=== PATIENT | male | born 1980 | race Caucasian/White ===

== ENCOUNTER 2020-12-25 11:39 | Emergency (ER) | payer OTHER, MEDICAID, SELFPAY ==
[2020-12-25] VITALS (8 sets, daily range): BP systolic 143–178; BP diastolic 70–96; PULSE 62–117; RESP 16; O2SAT 97–100; BMI 29.8
[2020-12-25] MEDS: ONDANSETRON 4 MG/2 ML INJ IV (12:07)
[2020-12-25 12:20] LABS: INR 1.1 (0.9-1.3); Prothrombin Time 12.6 SECONDS (10.1-12.7)
[2020-12-25 12:21] LABS: Add Manual Diff / Slide Review NO; Basophils Absolute Auto 0 /uL (0-100); Basophils Percent Auto 0.2 % (0-2); Eosinophils Absolute Auto 0 /uL (0-450); Hematocrit 46.4 % (41-53); Hemoglobin 15.1 g/dL (13.5-17.5); Lymphocytes Absolute Auto 1400 /uL (1100-4500); Lymphocytes Percent Auto 6.4 % (25-40); Mean Corpuscular HGB Conc 32.4 % (30-36); Mean Corpuscular Hemoglobin 27.7 PG (26-34); Mean Corpuscular Volume 85.3 fL (80-100); Monocytes Absolute Auto 1200 /uL (0-900); Monocytes Percent Auto 5.6 % (3-14); Neutrophils Absolute Auto 18400 /uL (1500-7000); Neutrophils Percent Auto 87.8 % (50-75); Platelet Count 315 X10^3/uL (150-400); Red Blood Cell Count 5.44 X10^6/uL (4.5-5.9); Red Cell Distribution Width 14.4 % (11.6-14.8)
[2020-12-25 12:23] LABS: PTT Partial Thromboplastin Tim 29 SECONDS (26.4-36.2)
[2020-12-25 12:24] LABS: Alanine Aminotransferase 37 IU/L (<50); Albumin Globulin Ratio 1.3 (1.0-2.8); Alkaline Phosphatase 112 U/L (38-126); Aspartate Aminotransferase 47 IU/L (17-59); BUN Creatinine Ratio 20.9 (6-22); Bilirubin Total 0.7 mg/dL (0.2-1.3); Blood Urea Nitrogen 19 mg/dL (9-20); Calcium 10.1 mg/dL (8.4-10.2); Carbon Dioxide 25 mmol/L (22-32); Chloride 102 mmol/L (98-107); Estimated Glomerular Filt Rate > 60.0 mL/min (>60); Glucose 153 mg/dL (70-100); HEMOLYSIS < 15 (0-50); Lipase 22 U/L (23-300); Potassium 3.5 mmol/L (3.4-5.1); Sodium 139 mmol/L (137-145)
--- NOTE | 2020-12-25 12:31 | ED_ITS ---
HPI - Abdominal Pain General Chief Complaint: Abdominal Pain Stated Complaint: throwing up since yesterday,acid burning throat Time Seen by Provider: 12/25/20 12:16 Source: patient Mode of arrival: Ambulatory Limitations: no limitations History of Present Illness HPI narrative: Patient is a 40-year-old male with history of GERD presenting with vomiting diarrhea and burning in his esophagus. He says that at around 1:00 p.m. he started vomiting and having watery episodes of diarrhea. He has thrown up multiple times some has been blood tinged. He has been trying to keep water and Gatorade down and is sometimes successful and sometimes not. He is having some epigastric discomfort and complains of burning in his throat. He was previously on Prilosec but says he ran out and did not get his prescription refilled and did not take any [id number]. He denies any fever or chills no on else is sick at home. Patient says he was vomiting bright red blood all last night a few times but has not vomited bright red blood today. MD complaint: abdominal pain Pain Consistency: constant Location: epigastric Related Data Previous Rx's Medication Instructions Recorded cyclobenzaprine 10 mg PO TIDP PRN #14 tab 09/11/17 hydrocodone-acetaminophen 0 tab PO Q6HP PRN #15 tab 09/11/17 ketorolac 10 mg PO Q6HP PRN #15 tab 09/11/17 omeprazole 40 mg PO DAILY #30 cap 12/25/20 ondansetron 8 mg PO Q8H #14 tab 12/25/20 Allergies Allergy/AdvReac Type Severity Reaction Status Date / Time No Known Drug Allergies Allergy Verified 12/25/20 12:12 Review of Systems Review of Systems Narrative: GENERAL: Denies chills, fatigue, malaise, fever, sweats, travel HEENT: Denies sinus pain, ear pain, sore throat, difficulty swallowing, neck pain RESPIRATORY: Denies dyspnea, cough, wheezing, hemoptysis, sputum. CARDIOVASCULAR: Denies chest pain, palpitations, orthopnea, edema GASTROINTESTINAL: See HPI : Denies dysuria, frequency, incontinence, hematuria, urinary retention, flank pain. MUSCULOSKELETAL: Denies weakness, joint pain, or bony pain SKIN: No rash, no erythema, no pruritus NEUROLOGIC: Denies weakness, dizziness, headache, numbness, change in speech, confusion PSYCHIATRIC: No concerning psychosocial issues. 12 point review of systems is negative except for those stated above and HPI Patient History Medical History GERD (gastroesophageal reflux disease) Social History Smoking Status: Never smoker Smoking Status: Never smoker alcohol intake frequency: 0-2 drinks per day Substance Use Type: does not use Exam Initial Vital Signs Initial Vital Signs: Vital Signs Pulse Rate 117 H 12/25/20 11:40 Respiratory Rate 16 12/25/20 11:40 Blood Pressure 178/90 H 12/25/20 11:40 Pulse Oximetry 100 12/25/20 11:40 GENERAL: Well-appearing, well-nourished and in no acute distress. HEENT: Head atraumatic,EOMI, pupils reactive, face symmetric, dry mucous membranes CARDIOVASCULAR: Regular rate and rhythm without murmurs, rubs or gallops. RESPIRATORY: Breath sounds equal bilaterally, no wheezes rales or rhonchi. ABDOMEN: Soft, mild epigastric pain. Normoactive bowel sounds all 4 quadrants. No guarding or rebound. EXTREMITIES: Normal range of motion, no clubbing or edema. Neurovascularly intact NEUROLOGICAL: Alert and oriented x4.Normal gait and speech. Cranial nerves II through XII grossly intact. SKIN: Warm, dry, no laceration, no petechiae, no rashes or lesions. Course Orders Ordered: ED Orders 12/25/20 11:55 Complete Blood Count AUTO DIFF Stat Comprehensive Metabolic Panel Stat Lipase Stat Partial Thromboplastin Time Stat Prothrombin Time INR Stat 12/25/20 12:51 EKG-12 Lead Stat Discontinued Medications Al Hydrox/Mg Hydrox/Simethicone 20 ml/ Lidocaine HCl 15 ml 0 ml PO NOW ONE Stop: 12/25/20 12:39 Last Admin: 12/25/20 12:54 Dose: 35 ml Documented by: BTONEAyad Sodium Chloride (Normal Saline 0.9%) 1,000 mls @ 1,000 mls/hr IV BOLUS ONE Stop: 12/25/20 13:37 Last Infusion: 12/25/20 14:02 Dose: 0 mls/hr Documented by: Admin: 12/25/20 12:53 Dose: 1,000 mls/hr Documented by: BTONER Ondansetron HCl (Ondansetron 4 Mg/2 Ml Inj) 4 mg IV NOW ONE Stop: 12/25/20 12:02 Last Admin: 12/25/20 12:07 Dose: 4 mg Documented by: ROSAURA Vital Signs Vital signs: Vital Signs - 8 hr 12/25/20 11:40 12/25/20 11:44 12/25/20 12:00 Pulse Rate 117 H 77 74 Respiratory Rate 16 Blood Pressure 178/90 H 178/90 H Pulse Oximetry 100 99 99 12/25/20 12:30 12/25/20 13:00 12/25/20 13:30 Pulse Rate 62 87 99 H Respiratory Rate Blood Pressure 154/88 H 160/96 H 143/70 H Pulse Oximetry 100 97 97 12/25/20 13:50 12/25/20 14:03 Pulse Rate 96 H Respiratory Rate 16 Blood Pressure 143/70 H Pulse Oximetry 97 MDM - Abdominal Pain Lab Data Attestation: I reviewed the patient's lab results. Result diagrams: 12/25/20 11:55 12/25/20 11:55 Labs: Lab Results 12/25/20 12/25/20 12/25/20 Range/Units 11:55 11:55 11:55 WBC 21.0 H (4.5-11.0) X10^3/uL RBC 5.44 (4.5-5.9) X10^6/uL Hgb 15.1 (13.5-17.5) g/dL Hct 46.4 (41-53) % MCV 85.3 (80-100) fL MCH 27.7 (26-34) PG MCHC 32.4 (30-36) % RDW 14.4 (11.6-14.8) % Plt Count 315 (150-400) X10^3/uL Neut % (Auto) 87.8 H (50-75) % Lymph % (Auto) 6.4 L (25-40) % Hettinger % (Auto) 5.6 (3-14) % Eos % (Auto) 0.0 L (2-4) % Baso % (Auto) 0.2 (0-2) % Neut # (Auto) 14878 H (9942-4498) /uL Lymph # (Auto) 1400 (7049-3010) /uL [place]tinger # (Auto) 1200 H (0-900) /uL Eos # (Auto) 0 (0-450) /uL Baso # (Auto) 0 (0-100) /uL PT 12.6 (10.1-12.7) SECONDS INR 1.1 (0.9-1.3) APTT 29 (26.4-36.2) SECONDS Sodium 139 (137-145) mmol/L Potassium 3.5 (3.4-5.1) mmol/L Chloride 102 (98-107) mmol/L Carbon Dioxide 25 (22-32) mmol/L BUN 19 (9-20) mg/dL Creatinine 0.91 (0.66-1.25) mg/dL Estimated GFR > 60.0 (>60) mL/min BUN/Creatinine Ratio 20.9 (6-22) Glucose 153 H (70-100) mg/dL Calcium 10.1 (8.4-10.2) mg/dL Total Bilirubin 0.7 (0.2-1.3) mg/dL AST 47 (17-59) IU/L ALT 37 (<50) IU/L Alkaline Phosphatase 112 (38-126) U/L Total Protein 9.0 H (6.3-8.2) g/dL Albumin 5.0 (3.5-5.0) g/dL Globulin 4.0 (1.7-4.1) g/dL Albumin/Globulin Ratio 1.3 (1.0-2.8) Lipase 22 L (23-300) U/L ECG Data Attestation: I personally reviewed and interpreted this ECG as follows: Prior ECG tracings: not available for review Interpretation: Rhythm rate 71 p.r. interval 131 QRS [address] changes T- wave inversion MDM Narrative Medical decision making narrative: Patient feeling significantly better after GI cocktail and Zofran. Tolerating water. Symptoms consistent with gastroenteritis. At this time I do not think imaging is indicated. Oral rehydration technique has been discussed and understand. Discharge Plan Departure Patient Disposition: Home Clinical Impression: Gastroenteritis Instructions: DI for Viral Gastroenteritis -- Adult Activity Restrictions/Additional Instructions: *You have been diagnosed with gastroenteritis, acid reflux *What to do: Increase fluid intake as tolerated small frequent sips of Gatorade or Gatorade like substance is recommended. You do likely need to take omeprazole or Prilosec daily once again. *Continue to take medications as directed Zofran 4 mg every 8 hours if needed for nausea or vomiting Omeprazole 40 mg once a day 30 minutes prior to meal *Follow up with your primary care provider in 2-3 days *Return to ER if you should have persistent vomiting, diarrhea, vomiting blood area dizziness lightheadedness or passing or any new, worsening or concerning symptoms Prescriptions: New ondansetron 8 mg tablet,disintegrating 8 mg PO Q8H Qty: 14 RF: 0 omeprazole 40 mg capsule,delayed release(DR/EC) 40 mg PO DAILY Qty: 30 RF: 0 No Action cyclobenzaprine 10 MG tablet 10 mg PO TIDP PRNQty: 14 RF: 0 hydrocodone-acetaminophen 5 MG/325 MG tablet 0 tab PO Q6HP PRNQty: 15 RF: 0 ketorolac 10 MG tablet 10 mg PO Q6HP PRNQty: 15 RF: 0 Referrals: [facility] [Outside]
[2020-12-25] MEDS: SODIUM CHLORIDE 0.9% 1,000 ML 1000 ML IV (12:53)
[2020-12-25] MEDS: MAG HYDROX/ALUMINUM/SIMETH SUS 20 ML, LIDOCAINE VISCOUS 2% 15 ML PO (12:54)
--- NOTE | 2020-12-25 13:22 | PC.NURSE ---
pt states he feels better after the medications.
== END 2020-12-25 14:03 | disposition home or self-care (01) ==
PROVIDERS: Emergency Provider Emergency Medicine; PCP Internal Medicine
DX: K52.9 Noninfective gastroenteritis and colitis, unspecified (principal); K21.9 Gastro-esophageal reflux disease without esophagitis; R11.2 Nausea with vomiting, unspecified; R10.9 Unspecified abdominal pain
CPT/HCPCS: 36415; 80053; 83690; 85025; 85610; 85730; 93005; 96361; 96374; 99283; 99284; J2405

== ENCOUNTER → 2021-01-21 08:58 | Outpatient (CLI) | payer OTHER, MEDICAID, SELFPAY ==
--- NOTE | 2021-01-21 08:59 | DI.RAD.S_ITS ---
PROCEDURE: XR LUMBAR SPINE MIN 4V INDICATIONS: Back Pain/Consult image for [place]. TECHNIQUE: 5 views of the lumbar spine were acquired, including bilateral oblique views. COMPARISON: None. FINDINGS: Bones: 5 nonrib-bearing vertebrae are present. There is normal bony alignment. No vertebral body compression fractures. No suspicious bony lesions. Soft tissues: Overlying bowel gas pattern is normal. No suspicious soft tissue calcifications. Oblique images: No pars defects. IMPRESSION: No trauma found. Mild degenerative facet osteoarthritis at L4-5 and L5-S1. Minimal degenerative disc height reduction at these 2 levels also. Mild degenerative change at the L2-L3 disc space with anterior projecting osteophytes. Dictated by: Deshaun Ashley M.D. on 01/21/2021 at 10:27 Approved by: Deshaun Ashley M.D. on 01/21/2021 at 10:28
[2021-01-21 11:15] LABS: BUN Creatinine Ratio 17.9 (6-22); Blood Urea Nitrogen 14 mg/dL (9-20); Calcium 9.6 mg/dL (8.4-10.2); Carbon Dioxide 29 mmol/L (22-32); Chloride 103 mmol/L (98-107); Cholesterol 164 mg/dL (140-199); Estimated Glomerular Filt Rate > 60.0 mL/min (>60); Glucose 102 mg/dL (70-100); HDL Cholesterol 49 mg/dL (40-60); HEMOLYSIS < 15 (0-50); LDL Cholesterol Calculated 97 mg/dL (<100); Sodium 136 mmol/L (137-145); Triglycerides 90 mg/dL (35-150)
[2021-01-21 11:45] LABS: TSH w/ Reflex to FT4 0.93 uIU/mL (0.47-4.68)
== END ==
PROVIDERS: PCP Internal Medicine; Referring Provider Internal Medicine; Visit Provider Internal Medicine
DX: Z13.1 Encounter for screening for diabetes mellitus (principal); Z13.220 Encounter for screening for lipoid disorders; K21.9 Gastro-esophageal reflux disease without esophagitis; M54.9 Dorsalgia, unspecified; M47.816 Spondylosis without myelopathy or radiculopathy, lumbar region; M47.817 Spondylosis without myelopathy or radiculopathy, lumbosacral region
CPT/HCPCS: 36415; 72110; 80048; 80061; 84443

== ENCOUNTER → 2021-05-20 13:49 | Outpatient (CLI) | payer OTHER, MEDICAID, SELFPAY ==
[2021-05-20 16:12] LABS: COVID19 -Nasal RAPID Negative (Negative)
== END ==
PROVIDERS: PCP Internal Medicine; Visit Provider Physician Assistant
DX: Z01.812 Encounter for preprocedural laboratory examination (principal); Z20.822 Contact with and (suspected) exposure to COVID-19
CPT/HCPCS: 87635

== ENCOUNTER 2021-05-21 13:38 | Outpatient (CLI) | payer OTHER, MEDICAID, SELFPAY ==
[2021-05-21] VITALS (8 sets, daily range): BP systolic 125–147; BP diastolic 70–86; PULSE 64–80; RESP 14–20; TEMP 36.8; O2SAT 92–97
--- NOTE | 2021-05-21 13:40 | DI.RAD.S_ITS ---
PROCEDURE: PAIN L INTERLAMINAR/CAUDAL INJ INDICATIONS: SPONDYLOSIS COMPARISON: [facility], CR, XR LUMBAR SPINE MIN 4V, 01/21/2021, 9:00. Outside Facility, RG, MRI L-SPINE W/O CONTRAST, 01/05/2020, 10:09. FINDINGS: Fluoroscopic spot filming was performed to verify placement of spinal needles at the L3-L4 level(s), as labeled on the films. Appropriate location(s) of the needle tip(s) was confirmed by injection of iodinated contrast. IMPRESSION: Fluoroscopy for pain management. Dictated by: Flaquita Dougherty M.D. on 05/21/2021 at 17:20 Approved by: Flaquita Dougherty M.D. on 05/21/2021 at 17:20
[2021-05-21] MEDS: fentaNYL 100 MCG/2 ML INJ 50 MCG IV (14:20)
[2021-05-21] MEDS: MIDAZOLAM 5 MG/5 ML VIAL IV (14:20)
[2021-05-21] MEDS: BUPIVACAINE 0.25% (PF) VIAL 2 ML INJ (14:25)
[2021-05-21] MEDS: IOPAMIDOL 15 ML VIAL 3 ML INJ (14:25)
[2021-05-21] MEDS: BETAMETHASONE 30 MG/5 ML MDV 6 MG INJ (14:26)
[2021-05-21] MEDS: DEXAMETHASONE 10 MG/ML VIAL 20 MG INJ (14:26)
--- NOTE | 2021-05-21 14:34 | P.PCN_ITS ---
Date/Time/Diagnoses Date of procedure: 05/21/21 Time of procedure: 14:34 Pre-procedure diagnosis: 1. HNP WITH RADICULAR FEATURES, 2. MULTILEVEL CENTRAL STENOSIS, Post-procedure diagnosis: same Procedure Notes Procedure: 1. FLUOROSCOPICALLY GUIDED CONTRAST CONTROLLED INTERLAMINAR EPIDURAL STEROID INJECTION - L3/4 Indications: Neil is referred by Dr. Bacon for treatment of Bilateral Foraminal Stenosis L>R LE symptoms. Physician: Burton Jimenez Total Fluoroscopy time (seconds): 8 Total sedation minutes: 10 Complications: none Procedure in detail & Post-procedure care: FINDINGS Multilevel Central Spinal Stenosis with Nerve Root Compression DESCRIPTION OF PROCEDURE Fluoroscopically guided, contrast-controlled L3/4 translaminar epidural steroid injection. Following review of allergy and review of potential side effects and complications, including, but not necessarily limited to, infection, allergic reaction, local tissue breakdown, temporary as well as permanent nerve injury, paralysis, stroke and possible , the patient indicated that the patient understood and agreed to proceed. An informed consent document was signed by the patient, witnessed by a nurse, and placed in the patient's chart. Additionally, other treatment options including modalities, medications, and physical therapy were reviewed with the patient. After review of previous anaesthesic history and IV conscious sedation the patient was deemed safe to proceed with today?s procedure with IV conscious sedation as ASA class II designation. Safety time-out was performed to confirm patient ID, procedure to be performed and site of procedure. IV sedation was accomplished with a combination of 2mg of Versed and 50mcg of Fentanyl was administered by the RN after DO order, titrated to patient comfort during the course of the procedure while the patient remained responsive to all verbal commands. In the prone position, following sterile prep and drape of the lumbar region, the L3/4 translaminar space was identified fluoroscopically. The skin was anesthetized via a 25-gauge, 1.5-inch needle with 1% lidocaine solution. At this point, a 22-gauge short bevel spinal needle was atraumatically introduced and advanced under fluoroscopic guidance into the region of the L3/4 translaminar space. Depth was confirmed on lateral view. Radiological data, including multiple fluoroscopic views of the lumbar spine, reveal a spinal needle at the L3/4 translaminar space. Lateral views then show placement of the needle in the epidural space. Subsequent views show contrast material flowing superiorly and inferiorly in the epidural space. No vascular or intrathecal uptake is observed. At this point, using loss of resistance technique with saline and air, the epidural space was entered. This was confirmed following negative aspiration with injection of approximately 1.5 cc of Isovue 200, showing excellent epidural flow without vascular or intrathecal uptake. At this point, 1cc of 1% lidocaine solution combined with 3cc or 20mg of dexamethasone and 6mg of betamethasone was injected without incident. The patient tolerated the procedure well without signs or symptoms of complications prior to transfer to the recovery area continued monitoring without incident. The patient was then transferred to the recovery area where they were observed for an appropriate period of time after the injection. The patient reported a VAS score of 6 prior to the procedure and a post- procedure VAS of 0. POST OP INSTRUCTIONS The patient was provided a Pain Log to continue to record their response to the target-specific procedure prior to follow-up visit with their referring physician. Additionally, specific post-injection care instructions and a contact number to our office were provided if concerns arise regarding possible complications associated with the procedure are suspected.
== END 2021-05-21 14:52 | disposition home or self-care (01) ==
LOC: RAD 13:39
PROVIDERS: PCP Internal Medicine; Referring Provider Physical Medicine & Rehabilitation; Visit Provider Physical Medicine & Rehabilitation
DX: M51.16 Intervertebral disc disorders with radiculopathy, lumbar region (principal); M48.061 Spinal stenosis, lumbar region without neurogenic claudication
CPT/HCPCS: 62323; 99152; J0702; J1100; J2250; J3010

== ENCOUNTER → 2021-07-17 08:25 | Outpatient (CLI) | payer OTHER, MEDICAID, SELFPAY ==
[2021-07-17 11:50] LABS: COVID19 -Nasal RAPID Negative (Negative)
== END ==
PROVIDERS: PCP Internal Medicine; Visit Provider Nurse Practitioner
DX: Z20.822 Contact with and (suspected) exposure to COVID-19 (principal); R51.9 Headache, unspecified
CPT/HCPCS: 87635; C9803

== ENCOUNTER 2022-05-20 10:31 | Emergency (ER) | payer OTHER, MEDICAID, SELFPAY ==
[2022-05-20 10:36] VITALS: BP 157/88; PULSE 79; RESP 16; TEMP 36.9; O2SAT 97; BMI 30.5
--- NOTE | 2022-05-20 10:40 | DI.RAD.S_ITS ---
PROCEDURE: XR CHEST 1V INDICATIONS: chest pain TECHNIQUE: One view of the chest was acquired. COMPARISON: [facility], , CHEST 1 VIEW, 09/10/2017, 10:02. FINDINGS: Surgical changes and devices: None. Lungs and pleura: Lungs are clear. No pleural effusions or pneumothorax. Mediastinum: Mediastinal contours appear normal. Heart size is normal. Bones and chest wall: No suspicious bony lesions. Overlying soft tissues appear unremarkable. IMPRESSION: No acute cardiopulmonary pathology. Dictated by: Chidi Rodriguez M.D. on 05/20/2022 at 11:35 Approved by: Chidi Rodriguez M.D. on 05/20/2022 at 11:42
[2022-05-20 11:05] LABS: Appearance Urine UA CLEAR; Bilirubin Urine UA NEGATIVE (NEGATIVE); Color Urine UA YELLOW; Glucose Urine UA NEGATIVE (Negative); Ketones Urine UA NEGATIVE (NEGATIVE); Leukocyte Esterase Urine UA NEGATIVE (NEGATIVE); Nitrite Urine UA NEGATIVE (Negative); Occult Blood Urine UA NEGATIVE (Negative); Protein Urine UA NEGATIVE (Negative); Specific Gravity Urine UA <=1.005 (1.000-1.035); Urobilinogen Urine UA 0.2 E.U./dL (0.2)
[2022-05-20 11:10] LABS: Add Manual Diff / Slide Review NO; Basophils Absolute Auto 100 /uL (0-100); Basophils Percent Auto 0.6 % (0-2); Eosinophils Absolute Auto 100 /uL (0-450); Eosinophils Percent Auto 1.2 % (2-4); Hematocrit 42.5 % (41-53); Lymphocytes Absolute Auto 2100 /uL (1100-4500); Lymphocytes Percent Auto 18.6 % (25-40); Mean Corpuscular Hemoglobin 28.2 PG (26-34); Mean Corpuscular Volume 85.4 fL (80-100); Monocytes Absolute Auto 600 /uL (0-900); Monocytes Percent Auto 5.4 % (3-14); Neutrophils Absolute Auto 8400 /uL (1500-7000); Neutrophils Percent Auto 74.2 % (50-75); Platelet Count 256 X10^3/uL (150-400); Red Blood Cell Count 4.97 X10^6/uL (4.5-5.9); White Blood Cell Count 11.4 X10^3/uL (4.5-11.0)
[2022-05-20 11:12] LABS: Bacteria Urine None Seen; Culture Indicated Urine Cult Not Indicated; RBC Urine None Seen (0-5/HPF); Squamous Epithelial Cell Urine 0-1 /HPF (0-5/HPF); WBC Urine 0-1/HPF (0-5/HPF)
[2022-05-20 11:14] LABS: Prothrombin Time 11.1 SECONDS (10.1-12.7)
[2022-05-20 11:17] LABS: PTT Partial Thromboplastin Tim 32 SECONDS (26.4-36.2)
[2022-05-20 11:20] LABS: Alanine Aminotransferase 36 IU/L (<50); Albumin 4.8 g/dL (3.5-5.0); Albumin Globulin Ratio 1.4 (1.0-2.8); Alkaline Phosphatase 88 U/L (38-126); Aspartate Aminotransferase 38 IU/L (17-59); Bilirubin Total 0.4 mg/dL (0.2-1.3); Blood Urea Nitrogen 13 mg/dL (9-20); Calcium 9.4 mg/dL (8.4-10.2); Carbon Dioxide 28 mmol/L (22-32); Chloride 100 mmol/L (98-107); Creatine Kinase 179 U/L (55-170); Estimated Glomerular Filt Rate > 60 mL/min (>60); Globulin 3.4 g/dL (1.7-4.1); Glucose 104 mg/dL (70-100); HEMOLYSIS < 15 (0-50); Lipase 36 U/L (23-300); Magnesium 2.2 mg/dL (1.6-2.3); Potassium 4.2 mmol/L (3.4-5.1); Sodium 137 mmol/L (137-145); Total Protein 8.2 g/dL (6.3-8.2)
[2022-05-20 11:31] LABS: Troponin I < 0.012 ng/mL (0.01-0.034)
[2022-05-20 11:35] LABS: CKMB % Relative Index 1.2 % (1.5-5.0); Creatine Kinase MB 2.13 ng/mL (<2.37)
--- NOTE | 2022-05-20 12:45 | ED.DIZZY ---
HPI - Dizziness <Syed Luna PA-C - Last Filed: 05/20/22 14:57> General Chief Complaint: Dizziness Stated Complaint: Dizzy, light headed Time Seen by Provider: 05/20/22 12:32 Mode of arrival: Ambulatory History of Present Illness HPI Narrative: Patient is a 42-year-old male who presents to the ED reporting a 2 week history of dizziness. He states that 2 weeks ago he had an episode while at work that was pretty severe he had difficulty with getting home but did eventually get home he did say that he was able to relax and drink fluids and the dizziness resolved. Today he had recurrence of the same symptoms that seem to be not as severe as the episode last week. He denies any syncopal episode he denies any recent trauma. Patient does report that he started taking a Gen-X supplement about 3 weeks ago. He is also reporting that he has had some watery diarrhea for the last couple of days. 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 Patient denies any history of fever chills or recent exposures. He denies any shortness of breath he denies any chest pain. He is having some nausea however no reported vomiting today. No reported recent head injury or fall. He denies any past medical history. He does state that he has a primary care physician although he has not seen the physician in quite some time. So he is not current on any preventative measures. Related Data Home Medications Medication Instructions Recorded Confirmed acetaminophen 500 mg tablet 500 mg PO Q6H PRN 03/25/21 03/25/21 (Tylenol Extra Strength) Previous Rx's Medication Instructions Recorded omeprazole 40 mg capsule,delayed 40 mg PO DAILY #30 caps 12/25/20 release celecoxib 200 mg capsule (Celebrex) 200 mg PO DAILY #30 caps 03/25/21 Allergies Allergy/AdvReac Type Severity Reaction Status Date / Time No Known Drug Allergies Allergy Verified 03/25/21 11:17 Review of Systems <Syed Luna PA-C - Last Filed: 05/20/22 14:57> Review of Systems ROS Unobtainable: All systems reviewed & are unremarkable except as noted in HPI and below Constitutional Constitutional: Denies chills, Denies fatigue, Denies fever(s), Denies frequent falls, Denies lethargy and Denies weakness Eyes Eyes: Denies change in vision, Denies eye discharge, Denies irritation and Denies loss of vision ENT Ears, Nose, Mouth, and Throat: Denies change in voice, Reports vertigo, Reports dizziness, Denies neck pain, Denies sore throat and Denies throat swelling Cardiovascular Cardiovascular: Denies chest pain, Denies irregular heart rhythm, Denies lightheadedness, Denies palpitations, Denies dyspnea, Denies dyspnea on exertion and Denies orthopnea Respiratory Respiratory: Denies cough, Denies dyspnea, Denies dyspnea on exertion and Denies wheezing Gastrointestinal Gastrointestinal: Denies abdominal pain, Denies change in bowel habits, Denies diarrhea, Denies nausea and Denies vomiting Genitourinary Genitourinary: Denies hematuria, Denies flank pain, Denies urinary incontinence and Denies urinary urgency Musculoskeletal Musculoskeletal: Denies back pain, Denies muscle weakness, Denies neck pain, Denies numbness and Denies tingling Integumentary/Breasts Skin/Breast: Denies pruritus, Denies erythema, Denies rash and Denies wounds Neurologic Neurologic: Denies behavioral changes, Denies confusion, Reports vertigo, Reports dizziness, Denies frequent falls, Denies loss of vision, Denies numbness, Denies tingling and Denies weakness Psychiatric Psychiatric: Denies anxiety, Denies behavioral changes, Denies confusion, Denies depression, Denies homicidal ideation and Denies suicidal ideation Endocrine Endocrine: Denies fatigue, Denies flushing and Denies palpitations Hematologic/Lymphatic Hematologic/Lymphatic: Denies easy bruising Allergic/Immunologic Allergic/Immunologic: Denies urticaria, Denies throat swelling and Denies wheezing Patient History <Syed Luna PA-C - Last Filed: 05/20/22 14:57> Medical History Chronic low back pain Essential hypertension Facet arthropathy, lumbar Gastric ulcer GERD (gastroesophageal reflux disease) Hearing loss Herniated nucleus pulposus, L2-3 Tinnitus Surgical History No pertinent past surgical history Family History Mother Cancer Hypertension Social History Smoking Status: Former smoker Smoking Status: Former smoker alcohol intake frequency: 0-2 drinks per day Substance Use Type: does not use Exam <Syed Luna PA-C - Last Filed: 05/20/22 14:57> Initial Vital Signs Initial Vital Signs: Vital Signs Temperature 98.4 F 05/20/22 10:36 Pulse Rate 79 05/20/22 10:36 Respiratory Rate 16 05/20/22 10:36 Blood Pressure 157/88 H 05/20/22 10:36 Pulse Oximetry 97 05/20/22 10:36 Oxygen Delivery Method 05/20/22 10:36 Const General: cooperative, healthy appearing and comfortable Nutritional Appearance: average body habitus HENMT Head: normal to inspection, normocephalic and atraumatic Ears: hearing grossly normal bilaterally, external ears normal and TM's normal bilaterally Nose: external nose normal Face and sinus: normal facial exam and sinuses nontender Mouth: oral mucosae normal Teeth and gingiva: dentition normal and gingiva normal Throat: posterior oropharynx normal Neck Neck: normal visual inspection, full ROM and no meningeal signs Resp Effort & Inspection: normal respiratory effort and able to speak in complete sentences Auscultation: clear to auscultation bilaterally Cardio Palpation: normal PMI Rate: regular rate Rhythm: regular rhythm Heart Sounds: S1 normal and S2 normal GI Inspection: normal to inspection Palpation: soft and no hepatosplenomegaly Percussion: normal to percussion Auscultation: normal bowel sounds Neuro General: patient alert, patient awake, patient oriented x3, moves all extremities, no focal motor deficits and CN's II-XI intact bilaterally <Rachell Alexandra MD - Last Filed: 05/20/22 17:13> Initial Vital Signs Initial Vital Signs: Vital Signs Temperature 98.4 F 05/20/22 10:36 Pulse Rate 79 05/20/22 10:36 Respiratory Rate 16 05/20/22 10:36 Blood Pressure 157/88 H 05/20/22 10:36 Pulse Oximetry 97 05/20/22 10:36 Oxygen Delivery Method 05/20/22 10:36 Course <Syed Luna PA-C - Last Filed: 05/20/22 14:57> Orders Ordered: ED Orders 05/20/22 10:40 XR chest 1V Stat EKG-12 Lead Stat 05/20/22 10:46 Complete Blood Count AUTO DIFF Stat Comprehensive Metabolic Panel Stat Lipase Stat Magnesium Stat Partial Thromboplastin Time Stat Prothrombin Time INR Stat Troponin & CK Cardiac Panel Stat Urinalysis and Microscopic Stat 05/20/22 13:12 CT head/brain wo con Stat Discontinued Medications Sodium Chloride (Normal Saline 0.9%) 1,000 mls @ 1,000 mls/hr IV BOLUS ONE Stop: 05/20/22 13:48 Last Infusion: 05/20/22 14:51 Dose: 0 mls/hr Documented By: Infusion: 05/20/22 13:56 Dose: 999 mls/hr Documented By: Infusion: 05/20/22 13:20 Dose: 0 mls/hr Documented By: Admin: 05/20/22 13:05 Dose: 1,000 mls/hr Documented By: CTS Ondansetron HCl (Ondansetron 4 Mg/2 Ml Inj) 4 mg IV NOW ONE Stop: 05/20/22 12:46 Last Admin: 05/20/22 13:04 Dose: 4 mg Documented By: CTS Reevaluation(s) Reevaluation #1: Patient feeling better after fluid bolus denies any complaints of nausea or dizziness. Vital Signs Vital signs: Vital Signs - 8 hr 05/20/22 10:36 05/20/22 15:02 Temperature 98.4 F Pulse Rate 79 64 Respiratory Rate 16 18 Blood Pressure 157/88 H 131/69 Pulse Oximetry 97 99 Oxygen Delivery Method Room Air Room Air <Rachell Alexandra MD - Last Filed: 05/20/22 17:13> Orders Ordered: ED Orders 05/20/22 10:40 XR chest 1V Stat EKG-12 Lead Stat 05/20/22 10:46 Complete Blood Count AUTO DIFF Stat Comprehensive Metabolic Panel Stat Lipase Stat Magnesium Stat Partial Thromboplastin Time Stat Prothrombin Time INR Stat Troponin & CK Cardiac Panel Stat Urinalysis and Microscopic Stat 05/20/22 13:12 CT head/brain wo con Stat Discontinued Medications Sodium Chloride (Normal Saline 0.9%) 1,000 mls @ 1,000 mls/hr IV BOLUS ONE Stop: 05/20/22 13:48 Last Infusion: 05/20/22 14:51 Dose: 0 mls/hr Documented By: Infusion: 05/20/22 13:56 Dose: 999 mls/hr Documented By: Infusion: 05/20/22 13:20 Dose: 0 mls/hr Documented By: Admin: 05/20/22 13:05 Dose: 1,000 mls/hr Documented By: CTS Ondansetron HCl (Ondansetron 4 Mg/2 Ml Inj) 4 mg IV NOW ONE Stop: 05/20/22 12:46 Last Admin: 05/20/22 13:04 Dose: 4 mg Documented By: CTS Vital Signs Vital signs: Vital Signs - 8 hr 05/20/22 10:36 05/20/22 15:02 Temperature 98.4 F Pulse Rate 79 64 Respiratory Rate 16 18 Blood Pressure 157/88 H 131/69 Pulse Oximetry 97 99 Oxygen Delivery Method Room Air Room Air MDM - Dizziness <Syed Luna PA-C - Last Filed: 05/20/22 14:57> Differential Diagnosis Differential diagnosis: Likely other Lab Data Result diagrams: 05/20/22 10:46 05/20/22 10:46 Labs: Lab Results 05/20/22 05/20/22 05/20/22 Range/Units 10:46 10:46 10:46 WBC 11.4 H (4.5-11.0) X10^3/uL RBC 4.97 (4.5-5.9) X10^6/uL Hgb 14.0 (13.5-17.5) g/dL Hct 42.5 (41-53) % MCV 85.4 (80-100) fL MCH 28.2 (26-34) PG MCHC 33.0 (30-36) % RDW 14.0 (11.6-14.8) % Plt Count 256 (150-400) X10^3/uL Neut % (Auto) 74.2 (50-75) % Lymph % (Auto) 18.6 L (25-40) % [place] % (Auto) 5.4 (3-14) % Eos % (Auto) 1.2 L (2-4) % Baso % (Auto) 0.6 (0-2) % Neut # (Auto) 8400 H (0820-0024) /uL Lymph # (Auto) 2100 (2386-8549) /uL [place] # (Auto) 600 (0-900) /uL Eos # (Auto) 100 (0-450) /uL Baso # (Auto) 100 (0-100) /uL PT 11.1 (10.1-12.7) SECONDS INR 1.0 (0.9-1.3) APTT 32 (26.4-36.2) SECONDS Sodium 137 (137-145) mmol/L Potassium 4.2 (3.4-5.1) mmol/L Chloride 100 (98-107) mmol/L Carbon Dioxide 28 (22-32) mmol/L BUN 13 (9-20) mg/dL Creatinine 0.81 (0.66-1.25) mg/dL Estimated GFR > 60 (>60) mL/min BUN/Creatinine Ratio 16.0 (6-22) Glucose 104 H (70-100) mg/dL Calcium 9.4 (8.4-10.2) mg/dL Magnesium 2.2 (1.6-2.3) mg/dL Total Bilirubin 0.4 (0.2-1.3) mg/dL AST 38 (17-59) IU/L ALT 36 (<50) IU/L Alkaline Phosphatase 88 (38-126) U/L Total Creatine Kinase 179 H (55-170) U/L CK-MB (CK-2) 2.13 (<2.37) ng/mL CK-MB (CK-2) Rel Index 1.2 L (1.5-5.0) % Troponin I < 0.012 (0.01-0.034) ng/mL Total Protein 8.2 (6.3-8.2) g/dL Albumin 4.8 (3.5-5.0) g/dL Globulin 3.4 (1.7-4.1) g/dL Albumin/Globulin Ratio 1.4 (1.0-2.8) Lipase 36 (23-300) U/L Urine Color Urine Appearance Urine pH (4.5-8.0) Ur Specific [place] (1.000-1.035) Urine Protein (Negative) Urine Glucose (UA) (Negative) g/dL Urine Ketones (NEGATIVE) Urine Occult Blood (Negative) Urine Nitrate (Negative) Urine Bilirubin (NEGATIVE) Urine Urobilinogen (0.2) E.U./dL Ur Leukocyte Esterase (NEGATIVE) Urine RBC (0-5/HPF) Urine WBC (0-5/HPF) Ur Squamous Epith Cells (0-5/HPF) Urine Bacteria (None) Ur Culture Indicated? 05/20/22 Range/Units 10:46 WBC (4.5-11.0) X10^3/uL RBC (4.5-5.9) X10^6/uL Hgb (13.5-17.5) g/dL Hct (41-53) % MCV (80-100) fL MCH (26-34) PG MCHC (30-36) % RDW (11.6-14.8) % Plt Count (150-400) X10^3/uL Neut % (Auto) (50-75) % Lymph % (Auto) (25-40) % [place] % (Auto) (3-14) % Eos % (Auto) (2-4) % Baso % (Auto) (0-2) % Neut # (Auto) (2029-5125) /uL Lymph # (Auto) (2462-1552) /uL [place] # (Auto) (0-900) /uL Eos # (Auto) (0-450) /uL Baso # (Auto) (0-100) /uL PT (10.1-12.7) SECONDS INR (0.9-1.3) APTT (26.4-36.2) SECONDS Sodium (137-145) mmol/L Potassium (3.4-5.1) mmol/L Chloride (98-107) mmol/L Carbon Dioxide (22-32) mmol/L BUN (9-20) mg/dL Creatinine (0.66-1.25) mg/dL Estimated GFR (>60) mL/min BUN/Creatinine Ratio (6-22) Glucose (70-100) mg/dL Calcium (8.4-10.2) mg/dL Magnesium (1.6-2.3) mg/dL Total Bilirubin (0.2-1.3) mg/dL AST (17-59) IU/L ALT (<50) IU/L Alkaline Phosphatase (38-126) U/L Total Creatine Kinase (55-170) U/L CK-MB (CK-2) (<2.37) ng/mL CK-MB (CK-2) Rel Index (1.5-5.0) % Troponin I (0.01-0.034) ng/mL Total Protein (6.3-8.2) g/dL Albumin (3.5-5.0) g/dL Globulin (1.7-4.1) g/dL Albumin/Globulin Ratio (1.0-2.8) Lipase (23-300) U/L Urine Color Yellow Urine Appearance Clear Urine pH 7.0 (4.5-8.0) Ur Specific [place] <=1.005 (1.000-1.035) Urine Protein Negative (Negative) Urine Glucose (UA) Negative (Negative) g/dL Urine Ketones Negative (NEGATIVE) Urine Occult Blood Negative (Negative) Urine Nitrate Negative (Negative) Urine Bilirubin Negative (NEGATIVE) Urine Urobilinogen 0.2 (0.2) E.U./dL Ur Leukocyte Esterase Negative (NEGATIVE) Urine RBC None seen (0-5/HPF) Urine WBC 0-1/hpf (0-5/HPF) Ur Squamous Epith Cells 0-1 /hpf (0-5/HPF) Urine Bacteria None seen (None) Ur Culture Indicated? Cult not indicated Imaging Data CT scan - head: Radiologist's Impression: [place] [address] CT Scan Report Signed Patient: Neil Stanton MR#: [id number] : 1980 Acct:[id number] Age/Sex: 42 / M Date of Service: 05/20/22 Loc: ED Accession Number: [id number] ?? Procedure: CT head/brain wo con Ordering Provider: Syed Luna P.A-C PROCEDURE:? CT HEAD/BRAIN WO CON ? INDICATIONS:? dizziness ? TECHNIQUE:? Noncontrast 4.5 mm thick angled axial sections acquired from the foramen magnum to the vertex, with coronal and sagittal reformats.? For radiation dose reduction, the following was used:? automated exposure control, adjustment of mA and/or kV according to patient size.? ? COMPARISON:? [facility], CT, HEAD WITHOUT CONTRAST, 09/10/2017, 10:35. ? FINDINGS:? Image quality:? Excellent.? ? CSF spaces:? Basal cisterns are patent.? No extra-axial fluid collections.? Ventricles are normal in size and shape.? ? Brain:? No midline shift.? No intracranial masses or hemorrhage.? Cline-white matter interface is normal.? ? Skull and face:? Calvarium and visualized facial bones are intact, without suspicious lesions.? ? Sinuses:? Visualized sinuses and mastoids are clear.? ? IMPRESSION:? Unremarkable noncontrast head CT, without a cause of dizziness identified. ? ? Dictated by: Elías Montes M.D. on 05/20/2022 at 12:28 ? ? Approved by: Elías Montes M.D. on 05/20/2022 at 12:29?? Chest x-ray: Radiologist's Impression: Close Head CT (Signed) Elías Montes - 05/20/22 Chest X-Ray (Signed) Chidi Rodriguez - 05/20/22 Injection Lumbar, Sacrum (Signed) Jyothi Dougherty - 05/21/21 Lumbar Spine X-Ray (Signed) Deshaun Ashley - 01/21/21 DI Result CC 01/05/20 DI Result CC 01/05/20 Radiology - Historical 09/10/17 Radiology - Historical 09/10/17 Radiology - Historical 09/10/17 Radiology - Historical 09/10/17 Radiology - Historical 09/10/17 Launch?[place] [address] XRay Report Signed Patient: Neil Stanton MR#: [id number] : 1980 Acct:[id number] Age/Sex: 42 / M Date of Service: 05/20/22 Loc: ED Accession Number: [id number] ?? Procedure: XR chest 1V Ordering Provider: Rachell Alexandra MD PROCEDURE:? XR CHEST 1V ? INDICATIONS:? chest pain ? TECHNIQUE:? One view of the chest was acquired.? ? COMPARISON:? [facility], CHEST 1 VIEW, 09/10/2017, 10:02. ? FINDINGS:? ? Surgical changes and devices:? None.? ? Lungs and pleura:? Lungs are clear.? No pleural effusions or pneumothorax.? ? Mediastinum:? Mediastinal contours appear normal.? Heart size is normal.? ? Bones and chest wall:? No suspicious bony lesions.? Overlying soft tissues appear unremarkable.? ? IMPRESSION:? No acute cardiopulmonary pathology. ? ? Dictated by: Chidi Rodriguez M.D. on 05/20/2022 at 11:35 ? ? Approved by: Chidi Rodriguez M.D. on 05/20/2022 at 11:42?? ECG Data Attestation: I personally reviewed and interpreted this ECG as follows: Prior ECG tracings: not available for review Interpretation: Normal sinus rhythm with no acute changes or ischemic changes. MDM Narrative Medical decision making narrative: Patient was seen today for dizziness and nausea. He reports that he started taking a new medication supplement called Gen-X. It seems to align around when his symptoms began and for that reason I advised him that he should discontinue taking the supplement. He does stay hydrated with water and he should continue to stay hydrated as much as possible. Patient's symptoms seem to alleviate and as result patient will be discharged home patient can return to the ED for any further flare ups or concerns. Patient will also follow-up with primary care physician. <Rachell Alexandra MD - Last Filed: 05/20/22 17:13> Lab Data Labs: Lab Results 05/20/22 05/20/22 05/20/22 Range/Units 10:46 10:46 10:46 WBC 11.4 H (4.5-11.0) X10^3/uL RBC 4.97 (4.5-5.9) X10^6/uL Hgb 14.0 (13.5-17.5) g/dL Hct 42.5 (41-53) % MCV 85.4 (80-100) fL MCH 28.2 (26-34) PG MCHC 33.0 (30-36) % RDW 14.0 (11.6-14.8) % Plt Count 256 (150-400) X10^3/uL Neut % (Auto) 74.2 (50-75) % Lymph % (Auto) 18.6 L (25-40) % [place] % (Auto) 5.4 (3-14) % Eos % (Auto) 1.2 L (2-4) % Baso % (Auto) 0.6 (0-2) % Neut # (Auto) 8400 H (0999-6884) /uL Lymph # (Auto) 2100 (0357-1961) /uL [place] # (Auto) 600 (0-900) /uL Eos # (Auto) 100 (0-450) /uL Baso # (Auto) 100 (0-100) /uL PT 11.1 (10.1-12.7) SECONDS INR 1.0 (0.9-1.3) APTT 32 (26.4-36.2) SECONDS Sodium 137 (137-145) mmol/L Potassium 4.2 (3.4-5.1) mmol/L Chloride 100 (98-107) mmol/L Carbon Dioxide 28 (22-32) mmol/L BUN 13 (9-20) mg/dL Creatinine 0.81 (0.66-1.25) mg/dL Estimated GFR > 60 (>60) mL/min BUN/Creatinine Ratio 16.0 (6-22) Glucose 104 H (70-100) mg/dL Calcium 9.4 (8.4-10.2) mg/dL Magnesium 2.2 (1.6-2.3) mg/dL Total Bilirubin 0.4 (0.2-1.3) mg/dL AST 38 (17-59) IU/L ALT 36 (<50) IU/L Alkaline Phosphatase 88 (38-126) U/L Total Creatine Kinase 179 H (55-170) U/L CK-MB (CK-2) 2.13 (<2.37) ng/mL CK-MB (CK-2) Rel Index 1.2 L (1.5-5.0) % Troponin I < 0.012 (0.01-0.034) ng/mL Total Protein 8.2 (6.3-8.2) g/dL Albumin 4.8 (3.5-5.0) g/dL Globulin 3.4 (1.7-4.1) g/dL Albumin/Globulin Ratio 1.4 (1.0-2.8) Lipase 36 (23-300) U/L Urine Color Urine Appearance Urine pH (4.5-8.0) Ur Specific [place] (1.000-1.035) Urine Protein (Negative) Urine Glucose (UA) (Negative) g/dL Urine Ketones (NEGATIVE) Urine Occult Blood (Negative) Urine Nitrate (Negative) Urine Bilirubin (NEGATIVE) Urine Urobilinogen (0.2) E.U./dL Ur Leukocyte Esterase (NEGATIVE) Urine RBC (0-5/HPF) Urine WBC (0-5/HPF) Ur Squamous Epith Cells (0-5/HPF) Urine Bacteria (None) Ur Culture Indicated? 05/20/22 Range/Units 10:46 WBC (4.5-11.0) X10^3/uL RBC (4.5-5.9) X10^6/uL Hgb (13.5-17.5) g/dL Hct (41-53) % MCV (80-100) fL MCH (26-34) PG MCHC (30-36) % RDW (11.6-14.8) % Plt Count (150-400) X10^3/uL Neut % (Auto) (50-75) % Lymph % (Auto) (25-40) % [place] % (Auto) (3-14) % Eos % (Auto) (2-4) % Baso % (Auto) (0-2) % Neut # (Auto) (4096-2616) /uL Lymph # (Auto) (5601-8424) /uL [place] # (Auto) (0-900) /uL Eos # (Auto) (0-450) /uL Baso # (Auto) (0-100) /uL PT (10.1-12.7) SECONDS INR (0.9-1.3) APTT (26.4-36.2) SECONDS Sodium (137-145) mmol/L Potassium (3.4-5.1) mmol/L Chloride (98-107) mmol/L Carbon Dioxide (22-32) mmol/L BUN (9-20) mg/dL Creatinine (0.66-1.25) mg/dL Estimated GFR (>60) mL/min BUN/Creatinine Ratio (6-22) Glucose (70-100) mg/dL Calcium (8.4-10.2) mg/dL Magnesium (1.6-2.3) mg/dL Total Bilirubin (0.2-1.3) mg/dL AST (17-59) IU/L ALT (<50) IU/L Alkaline Phosphatase (38-126) U/L Total Creatine Kinase (55-170) U/L CK-MB (CK-2) (<2.37) ng/mL CK-MB (CK-2) Rel Index (1.5-5.0) % Troponin I (0.01-0.034) ng/mL Total Protein (6.3-8.2) g/dL Albumin (3.5-5.0) g/dL Globulin (1.7-4.1) g/dL Albumin/Globulin Ratio (1.0-2.8) Lipase (23-300) U/L Urine Color Yellow Urine Appearance Clear Urine pH 7.0 (4.5-8.0) Ur Specific [place] <=1.005 (1.000-1.035) Urine Protein Negative (Negative) Urine Glucose (UA) Negative (Negative) g/dL Urine Ketones Negative (NEGATIVE) Urine Occult Blood Negative (Negative) Urine Nitrate Negative (Negative) Urine Bilirubin Negative (NEGATIVE) Urine Urobilinogen 0.2 (0.2) E.U./dL Ur Leukocyte Esterase Negative (NEGATIVE) Urine RBC None seen (0-5/HPF) Urine WBC 0-1/hpf (0-5/HPF) Ur Squamous Epith Cells 0-1 /hpf (0-5/HPF) Urine Bacteria None seen (None) Ur Culture Indicated? Cult not indicated Discharge Plan Departure Patient Disposition: Home Clinical Impression: Dizziness Instructions: DI for Dizziness-Nonvertigo Activity Restrictions/Additional Instructions: Your workup today was negative and as result I would encourage you to stay as hydrated as possible drink plenty of fluids. I would discontinue the [id number] supplement at this time, I think it may be likely the result of what is causing your symptoms. You can return to the ED if her symptoms worsen or you can follow-up with your primary care physician. Thank you for the opportunity to care for you today Prescriptions: No Action omeprazole 40 mg capsule,delayed release(DR/EC) 40 mg PO DAILY Qty: 30 0RF acetaminophen [Tylenol Extra Strength] 500 mg tablet 500 mg PO Q6H PRN celecoxib [Celebrex] 200 mg capsule 200 mg PO DAILY Qty: 30 2RF Referrals: Igor Bacon MD [Primary Care Provider] - Visit Report Forms: Patient Portal/API <Rachell Alexandra MD - Last Filed: 05/20/22 17:13> Cosign ED Attending Aaronature Attestation: I was immediately available in the department for consultation throughout this patient's visit. I agree with documentation as above. Rachell Alexandra MD
[2022-05-20] MEDS: ONDANSETRON 4 MG/2 ML INJ IV (13:04)
[2022-05-20] MEDS: SODIUM CHLORIDE 0.9% 1,000 ML 1000 ML IV (13:05)
--- NOTE | 2022-05-20 13:12 | DI.CT.S_ITS ---
PROCEDURE: CT HEAD/BRAIN WO CON INDICATIONS: dizziness TECHNIQUE: Noncontrast 4.5 mm thick angled axial sections acquired from the foramen magnum to the vertex, with coronal and sagittal reformats. For radiation dose reduction, the following was used: automated exposure control, adjustment of mA and/or kV according to patient size. COMPARISON: [facility], CT, HEAD WITHOUT CONTRAST, 09/10/2017, 10:35. FINDINGS: Image quality: Excellent. CSF spaces: Basal cisterns are patent. No extra-axial fluid collections. Ventricles are normal in size and shape. Brain: No midline shift. No intracranial masses or hemorrhage. Cline-white matter interface is normal. Skull and face: Calvarium and visualized facial bones are intact, without suspicious lesions. Sinuses: Visualized sinuses and mastoids are clear. IMPRESSION: Unremarkable noncontrast head CT, without a cause of dizziness identified. Dictated by: Elías Montes M.D. on 05/20/2022 at 12:28 Approved by: Elías Montes M.D. on 05/20/2022 at 12:29
[2022-05-20 15:02] VITALS: BP 131/69; PULSE 64; RESP 18; O2SAT 99
== END 2022-05-20 15:02 | disposition home or self-care (01) ==
PROVIDERS: Emergency Medicine; Emergency Provider Physician Assistant; PCP Internal Medicine
DX: R42 Dizziness and giddiness (principal); R11.0 Nausea; R07.9 Chest pain, unspecified
CPT/HCPCS: 36415; 70450; 71045; 80053; 81001; 82550; 82553; 83690; 83735; 84484; 85025; 85610; 85730; 93005; 96361; 96374; 99284; J2405